=== PATIENT | male | born 1940 | race Caucasian/White ===

== ENCOUNTER 2021-07-06 11:50 | Inpatient (IN) | payer OTHER ==
[~2021-07-06] VITALS: Ht 180.3 cm; Wt 73.9 kg
[~2021-07-06 11:50] MED LIST: BACTROBAN OINT22 GM TP; BISMATROL262 MG/15 PO; CIPRO500 MG PO; IMODIUM PO; INTESTINEX1 CA1 PO; INTESTINEX680 M1 PO; INTESTINEX680 MG PO; IRBESARTAN75 MG; NORVASC5 MG; OXYC1TAB9 PO; PANTOPRAZOLE SO40 MG PO; PROTONIX40 MG PO; TRAM1TAB98 PO; ULTRACET PO; VASOTEC5 MG; ZOCOR20 MG
[2021-07-06] MEDS ORDERED: COZAAR100 MG PO (12:15)
[2021-07-06] MEDS ORDERED: ATORVASTATIN CA20 MG PO (12:15)
[2021-07-06] MEDS ORDERED: CHLORTHALIDONE25 MG PO (12:16)
[2021-07-14] MEDS ORDERED: LEVSIN/SL0.125 MG SL (10:56)
[2021-07-14] MEDS ORDERED: PEPCID AC20 MG PO (10:56)
[2021-07-14] MEDS ORDERED: INTESTINEX680 M1 PO (10:56)
== END 2021-07-14 20:23 | disposition home or self-care (01) | DRG 390 ==
LOC: ER 11:50 → SEC-K 20:09 → O/R 07-08 09:44 → SEC-K 07-08 10:22 → SURH 07-08 16:43
PROVIDERS: ADMIT Surgery; ATTEND Surgery
PROC: 02HV33Z Insertion of Infusion Device into Superior Vena Cava, Percutaneous Approach (ICD-10-PCS; principal; 2021-07-08)
DX: K56.690 Other partial intestinal obstruction (principal); Z20.822 Contact with and (suspected) exposure to COVID-19; Z85.048 Personal history of other malignant neoplasm of rectum, rectosigmoid junction, and anus

== ENCOUNTER 2022-01-24 11:47 | Inpatient (IN) | payer OTHER ==
[~2022-01-24] VITALS: Ht 180.3 cm; Wt 74.8 kg
[~2022-01-24 11:47] MED LIST changes: +ATORVASTATIN CA20 MG PO; +CHLORTHALIDONE25 MG PO; +COZAAR100 MG PO; +LEVSIN/SL0.125 MG SL; +PEPCID AC20 MG PO
[2022-01-25] MEDS ORDERED: TRAVOPROST2.5 ML (08:37)
[2022-01-25] MEDS ORDERED: BRIMONIDINE TART5 ML OP (08:37)
[2022-01-25] MEDS ORDERED: LOSARTAN-HCTZ1 EAC2 (08:37)
[2022-01-27] MEDS ORDERED: PROTONIX40 MG PO (08:07)
[2022-01-27] MEDS ORDERED: INTESTINEX680 M1 PO (08:07)
[2022-01-27] MEDS ORDERED: LEVSIN/SL0.125 MG SL (08:08)
== END 2022-01-27 14:07 | disposition home or self-care (01) | DRG 389 ==
LOC: ER 11:47 → SEC-K 21:35 → SURG 01-25 23:01
PROVIDERS: ADMIT Surgery; ATTEND Surgery
PROC: BW21ZZZ Computerized Tomography (CT Scan) of Abdomen and Pelvis (ICD-10-PCS; principal; 2022-01-24)
DX: K56.51 Intestinal adhesions [bands], with partial obstruction (principal); N17.8 Other acute kidney failure; I10 Essential (primary) hypertension; Z20.822 Contact with and (suspected) exposure to COVID-19; K91.0 Vomiting following gastrointestinal surgery

== ENCOUNTER → 2022-05-31 | Emergency (ER) | payer OTHER ==
[~2022-05-31] VITALS: Ht 167.6 cm; Wt 70.3 kg
[~2022-05-31] MED LIST changes: +BRIMONIDINE TART5 ML OP; +LOSARTAN-HCTZ1 EAC2; +TRAVOPROST2.5 ML
== END | disposition expired ==
LOC: ER 05:35
DX: J69.0 Pneumonitis due to inhalation of food and vomit (principal); Z91.013 Allergy to seafood; A41.9 Sepsis, unspecified organism; R65.21 Severe sepsis with septic shock; J96.00 Acute respiratory failure, unspecified whether with hypoxia or hypercapnia; I10 Essential (primary) hypertension; K56.609 Unspecified intestinal obstruction, unspecified as to partial versus complete obstruction